=== PATIENT | female | born 2000 | race Two or more races ===

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

== ENCOUNTER 2021-04-30 07:16 | Day surgery (SDC) | payer OTHER ==
[~2021-04-30] VITALS: Ht 162.6 cm; Wt 109.7 kg
[~2021-04-30 07:16] MED LIST changes: +ABILIFY MYCITE5 M2 PO; +Ativan1 MG PO; +CYCL10 PO; +Cymbalta20 MG PO; +OMEP20ER PO; +ONDA4 PO; +REXULTI1 MG PO; +SUMA25 PO
--- NOTE | 2021-04-30 11:06 | NUR ---
Patient up to Ambulate independently. Gait steady. Discharge instructions reviewed with patient. Patient verbalizes understanding. Copy given to patient to take home.DERMABOND REMAINS CDI WITH NO DRAINAGE.ICE PACK GIVEN TO PATIENT. PRESCRIPTION FOR PAIN MEDICATION IN DISCHARGE FOLDER WITH MOTHER AT TIME OF DISCHARGE. Discharged via wheelchair to private car for ride home WITH MOTHER
== END 2021-04-30 11:07 | disposition home or self-care (01) ==
LOC: ORSCMMR 07:16 → ORD 08:45 → ORSCMMR 11:07
PROVIDERS: Surgery
PROC: 0FT44ZZ Resection of Gallbladder, Percutaneous Endoscopic Approach (ICD-10-PCS; principal; 2021-04-30 08:45)
PROC: BF031ZZ Plain Radiography of Gallbladder and Bile Ducts using Low Osmolar Contrast (ICD-10-PCS; principal; 2021-04-30 08:45)
DX: K80.10 Calculus of gallbladder with chronic cholecystitis without obstruction (principal); F41.9 Anxiety disorder, unspecified; E66.01 Morbid (severe) obesity due to excess calories; Z68.41 Body mass index [BMI] 40.0-44.9, adult; K21.9 Gastro-esophageal reflux disease without esophagitis; Z79.899 Other long term (current) drug therapy
CPT/HCPCS: 74300; A9270; C1729; J0690; J2765; J7120